=== PATIENT | female | born 1950 | race Caucasian/White ===

== ENCOUNTER 2016-10-12 10:03 | Emergency (ER) | payer MEDICARE, BC ==
--- NOTE | 2016-10-12 11:20 | ER NURSING DOCUMENTATION ---
Nurse's Notes [facility] Name:Mercedes Nolen Age:66 yrs Sex:Female :1950 Arrival Date:10/12/2016 Time:10:03 BedTrauma-C Private MD: Diagnosis:Acute Upper Back Pain, Thoracic Presentation: 10/12 10:04 Notified ED Physician of patient's arrival and CC Dr. Burr notified. lpr 10:05 Acuity: KRISTOFER 2 lpr 10:26 Presenting complaint: Patient states: Left jaw pain and dizziness. Transition of care: lp Home. 10:26 Method Of Arrival: Private Vehicle lp Triage Assessment: 10:28 General: Appears in no apparent distress, Behavior is appropriate for age. Pain: lp Complains of pain in left mid back and right mid back Pain currently is 3 out of 10 on a pain scale. EENT: No deficits noted. Neuro: Level of Consciousness is awake, alert, Oriented to person, place, time, event, Success Coach are equal bilaterally Moves all extremities. Cardiovascular: Capillary refill < 3 seconds Heart tones S1 S2 Pulses are all present. Respiratory: Breath sounds are clear bilaterally. GI: No deficits noted. : No deficits noted. Derm: Skin is dry, Skin is pink, warm & dry. Musculoskeletal: No deficits noted. Historical: - Allergies: No known drug Allergies; - Home Meds: 1. Nature-Throid 32.5 mg oral tab 1 tab once daily - PMHx: HYPOTHYROIDISM; - PSHx: c section; skin cancer removal; - Tetanus: < 10 years. - Ebola Screening: : Patient negative for fever greater than or equal to 101.5 degrees Fahrenheit, and additional compatible Ebola Virus Disease symptoms. Patient denies exposure to infectious person. Patient denies travel to an Ebola-affected area in the 21 days before illness onset. . - Immunization history: Pneumococcal vaccine is not up to date, Flu Vaccine None. - Social history: Smoking status: Patient states was never smoker of tobacco. Screenin:30 Infectious Disease Risk None. Abuse screen: Denies threats or abuse. Denies injuries lp from another. Nutritional screening: No deficits noted. Assessment: 10:30 See Triage Assessment done by same RN. lp Vital Signs: 10:18 BP 130 / 110; Pulse 87; Resp 16; Temp 98.3(TE); Pulse Ox 96% on R/A; Weight 50.8 kg; lp Height 5 ft. 4 in. (162.56 cm); Pain 4/10; 10:18 BP 163 / 77 (auto/); lp 10:21 Pulse 71 MON; Resp 23; Pulse Ox 95% ; lp 10:30 BP 133 / 64 (auto/); lp 10:31 Pulse 89 MON; Resp 18; Pulse Ox 95% ; lp 10:18 Body Mass Index 19.22 (50.80 kg, 162.56 cm) lp [place] Coma Score: 10:30 Eye Response: spontaneous(4). Verbal Response: oriented(5). Motor Response: obeys cd commands(6). Total: 15. ED Course: 10:04 Patient arrived in ED. dp 10:05 Triage completed. lpr 10:21 Dani Burr MD is Attending Physician. cd 10:26 Yulissa Felix RN is Primary Nurse. lp 10:[address] Burr notified. lp 10:30 Valuables Patient has correct armband on for positive identification. Placed in gown. lp Bed in low position. Call light in reach. Side rails up X 1. 10:34 Inserted peripheral IV: 20 gauge in right antecubital area and blood collected. lp 10:49 Iris Cisneros DO is Referral Physician. cd Administered Medications: 10:30 Drug: Aspirin Chewable Tablet 324 mg; Route: PO; lp 11:19 Follow up: Response: No adverse reaction; No change in condition lp 10:30 Drug: NS 0.9% 1000 ml; Route: IV; Rate: bolus; Site: right antecubital; lp 11:19 Follow up: Response: No adverse reaction; IV Status: Completed infusion; IV Intake: lp 1000ml 10:31 CANCELLED (Patient Refused): Toradol 15 mg IVP once lp Intake: 11:19 IV: 1000ml; Total: 1000ml. lp Outcome: 10:50 Discharge ordered by . cd 11:19 Discharged to home ambulatory. lp 11:19 Condition: improved 11:19 Instructed on follow up and referral plans. medication usage. 11:20 Patient left the ED. lp 10/13 15:01 Discharge F/U Call: Unable to reach: no answer rh Signatures: Yulissa Felix, REAGAN RN lp Burr, Dani, Neetu Adams MD, cd, REAGAN RN Merlin Lozano Rachel rh [place], Denise dp
--- NOTE | 2016-10-12 11:20 | ER PHYSICIAN DOCUMENTATION ---
Physician Documentation [facility] Name:Mercedes Nolen Age:66 yrs Sex:Female :1950 Arrival Date:10/12/2016 Time:10:03 BedTrauma-C Private MD: Dani Garcia Disposition: 10/12 10:49 Critical Care: not applicable. cd Disposition: 10/12/16 10:50 Discharged to Home/Self Care. Impression: Acute Upper Back Pain, Thoracic. - Condition is Good. - Discharge Instructions: Ache, Back - BACK CARE TIPS, Ache, Back - BACK PAIN (Acute or Chronic). - Medical Reconciliation form form. - Follow up: Iris Cisneros DO; When: 7 - 10 days; Reason: Recheck today's complaints, Continuance of care. - Problem is new. - Symptoms have improved. - Notes: Ice packs to upper back. Ibuprofen 400mg by mouth every 6 hours as needed for pain. Rest, no lifting. If continues, follow up with Dr. Omer, Atm Technician, this next week otherwise follow up with Dr. Ralph Cisneros at the [facility]. HPI: 10:05 This 66 yrs old Female presents to ER via Private Vehicle with complaints of cd Jaw Pain and low back pain. 10:05 The patient or guardian reports chest pain that is located primarily in the Patient cd reports jaw pain that she reports is chronic from TMJ problems. She also reports low back pain from working outside and lifting a lot of heavy bags the last few days. She denies chest pain or arm pain. She has no risk factors for CAD.. Onset: acutely, this morning. The pain does not radiate. There has been no movement of pain. Associated signs and symptoms: Pertinent negatives: abdominal pain, lower extremity pain, lower extremity swelling, nausea, palpitations, shortness of breath, vomiting. The chest pain is described as aching. Duration: The patient or guardian reports a single episode, that is still ongoing, and unchanged. Severity of pain: At its worst the pain was moderate in the emergency department the pain is unchanged. Risk factors for coronary artery disease include: This patient does not have any risk factors for coronary artery disease. The risk factors for thoracic aortic dissection include: This patient does not have any risk factors for thoracic aortic dissection. The risk factors for pulmonary embolism include: This patient does not have any risk factors for a pulmonary embolism. The patient has not experienced similar symptoms in the past. Historical: - Allergies: No known drug Allergies; - Home Meds: 1. Nature-Throid 32.5 mg oral tab 1 tab once daily - PMHx: HYPOTHYROIDISM; - PSHx: c section; skin cancer removal; - Tetanus: < 10 years. - Ebola Screening: : Patient negative for fever greater than or equal to 101.5 degrees Fahrenheit, and additional compatible Ebola Virus Disease symptoms. Patient denies exposure to infectious person. Patient denies travel to an Ebola-affected area in the 21 days before illness onset. . - Immunization history: Pneumococcal vaccine is not up to date, Flu Vaccine None. - Social history: Smoking status: Patient states was never smoker of tobacco. ROS: 10:30 ENT: Negative for injury, pain, epistaxis and discharge. cd Neck: Negative for injury, pain, stiffness and swelling. Abdomen/GI: Negative for abdominal pain, nausea, vomiting, diarrhea, constipation, distension, melena, hematochezia and hematemesis. : Negative for injury, bleeding, discharge, dysuria, frequency, urgency and swelling. MS/Extremity: Negative for injury, deformity, edema, calf tenderness, pain or coldness. Skin: Negative for injury, rash, itching and discoloration. 10:30 Neuro: Negative for headache, weakness, numbness, tingling, and seizure. cd 10:30 Constitutional: Positive for poor PO intake, Negative for body aches, fever. 10:30 Cardiovascular: Negative for chest pain, edema, palpitations. 10:30 Respiratory: Negative for dyspnea on exertion, pleurisy, shortness of breath, wheezing. 10:30 Back: Positive for pain at rest, pain with movement, of the lumbar area, left low back and right low back. 10:30 All other systems are negative. Exam: ENT: Nares patent. No nasal discharge, no septal abnormalities noted. Tympanic membranes are normal and external auditory canals are clear. Oropharynx with no redness, swelling, or masses, exudates, or evidence of obstruction, uvula midline. Mucous membranes moist. Neck: Trachea midline, no thyromegaly or masses palpated, and no cervical lymphadenopathy. Supple, full range of motion without nuchal rigidity, or vertebral point tenderness. No Meningismus. Chest/axilla: Normal chest wall appearance and motion. Nontender with no deformity. No lesions are appreciated. Abdomen/GI: Soft, non-tender, with normal bowel sounds. No distension or tympany. No guarding or rebound. No evidence of tenderness throughout. Skin: Warm, dry with normal turgor. Normal color with no rashes, no lesions, and no evidence of cellulitis. MS/ Extremity: Pulses equal, no cyanosis. Neurovascular intact. Full, normal range of motion. 10:30 Neuro: Awake and alert, GCS 15, oriented to person, place, time, and situation. cd Cranial nerves II-XII grossly intact. Motor strength 5/5 in all extremities. Sensory grossly intact. Cerebellar exam normal. Normal gait. 10:30 Constitutional: The patient appears in no acute distress, alert, awake. 10:30 Cardiovascular: Rate: normal, Rhythm: regular, Heart sounds: normal. 10:30 Respiratory: the patient does not display signs of respiratory distress, Respirations: normal, Breath sounds: are normal. 10:30 Back: pain, that is moderate, of the lumbar area, left low back and right low back, ROM is painful, normal spinal alignment noted, CVA tenderness, is absent, vertebral tenderness, is not appreciated, Straight leg raises: of both lower extremities does not illicit pain. Vital Signs: 10:18 BP 130 / 110; Pulse 87; Resp 16; Temp 98.3(TE); Pulse Ox 96% on R/A; Weight 50.8 kg; lp Height 5 ft. 4 in. (162.56 cm); Pain 4/10; 10:18 BP 163 / 77 (auto/); lp 10:21 Pulse 71 MON; Resp 23; Pulse Ox 95% ; lp 10:30 BP 133 / 64 (auto/); lp 10:31 Pulse 89 MON; Resp 18; Pulse Ox 95% ; lp 10:18 Body Mass Index 19.22 (50.80 kg, 162.56 cm) lp [place] Coma Score: 10:30 Eye Response: spontaneous(4). Verbal Response: oriented(5). Motor Response: obeys cd commands(6). Total: 15. MDM: 10:07 ECG:. cd 10:07 Response to treatment: the patient's condition has returned to base line, the patient cd is now symptom free, patient is well hydrated. and as a result, I will discharge patient. 10:12 Data interpreted: telemetry monitor: rate is 88 beats/min, rhythm is normal sinus rhythm, cd regular, with no ectopy, Interpretation: normal rate, normal rhythm, Pulse oximetry: on room air is 95 %. Interpretation: normal. 10:21 Patient medically screened. cd 10:30 Differential diagnosis: TMJ Syndrome pain, CAD, Low Back Pain. Patient took aspirin in cd the Emergency Department. Patient did not receive fibrinolytic due to Not indicated. 10:40 DANGELO Risk Score: 1 - patient's age is greater or equal to 65 years, TOTAL SCORE = 1. cd 10:50 Data reviewed: vital signs, nurses notes, old medical records, lab test result(s), EKG, cd and as a result, I will discharge patient. 10:55 Counseling: I had a detailed discussion with the patient and/or guardian regarding: the cd historical points, exam findings, and any diagnostic results supporting the discharge/admit diagnosis, lab results, the need for outpatient follow up, for a recheck, with the patient's primary care provider, to return to the emergency department if symptoms worsen or persist or if there are any questions or concerns that arise at home. 10/14 10:53 ED course: I spoke with the patient 15 minutes ago about her 2 cm Hilar node that was cd seen on her CXR. She will need to follow up with Dr. Ralph Cisneros or another health care provider at [facility] this next week to be rechecked and a CT Scan of the chest ordered and reviewed. I called Lashawn White RN, the Triage Nurse at the clinic and gave her all the information. She will call the patient and arrange follow up with an [facility] physician this next week.. 10/12 11:11 Order name: TROPONIN - I-STAT; Complete Time: 18:26 EDMS 10/12 Interpretation: Normal. cd 10/12 20:35 Order name: CHEST; SINGLE VIEW [id number]; Complete Time: 06:34 EDMS 10/14 06:41 Interpretation: Normal Except: Nml except a 2 cm Hilar node that will need follow up cd with a CT Scan. This was discussed with the patient over the phone on 10/14/2016. 10/12 10:22 Order name: EKG - 12 Lead; Complete Time: 10:31 cd 10/12 10:22 Order name: Cardiac Monitoring - Continuous; Complete Time: cd 10/12 10:22 Order name: Pulse Ox Continuous; Complete Time: EC/27 10: Rate is 84 beats/min. Rhythm is regular. QRS [place] is Normal. AL interval is normal. QRS cd interval is normal. QT interval is normal. No Q waves. T waves are Normal. No ST changes noted. Clinical impression: Normal ECG and No evidence of ischemia. Interpreted by me. Dispensed Medications: 10:30 Drug: Aspirin Chewable Tablet 324 mg; Route: PO; lp 11:19 Follow up: Response: No adverse reaction; No change in condition lp 10:30 Drug: NS 0.9% 1000 ml; Route: IV; Rate: bolus; Site: right antecubital; lp 11:19 Follow up: Response: No adverse reaction; IV Status: Completed infusion; IV Intake: lp 1000ml 10: CANCELLED (Patient Refused): Toradol 15 mg IVP once lp Signatures: Yulissa Felix RN RN lp Dani Burr MD MD cd
--- NOTE | 2016-10-12 19:30 | RADIOLOGY REPORT ---
A limited single portable view of the chest demonstrates the heart and vessels to be unremarkable. There are findings raising concern for a 2 cm nodule in the left hilar region. No calcification is identified. Lung weaver are otherwise clear. No infiltrate, fluid or pneumothorax is seen. IMPRESSION: Question 2 cm left hilar nodule. Further evaluation with CT scanning is recommended. Findings were personally reviewed with Dr. Burr at 1810 hours on 10/12/2016. [facility]
== END 2016-10-12 11:20 | disposition home or self-care (01) ==
LOC: ER 10:03
DX: M54.5 Low back pain (principal); M26.629 Arthralgia of temporomandibular joint, unspecified side; R93.8 Abnormal findings on diagnostic imaging of other specified body structures; Z79.899 Other long term (current) drug therapy
CPT/HCPCS: 71010; 84484; 93005; 93010; 96360; 99283